=== PATIENT | female | born 1995 | race African-American/Black ===

== ENCOUNTER 2022-10-26 19:53 | Emergency (ER) | payer MEDICAID ==
[~2022-10-26] VITALS: Ht 157.5 cm; Wt 98.0 kg
[2022-10-26] MEDS ORDERED: IBUPROFEN 600MG TABLET PO ONE (21:15)
[2022-10-26 21:32] VITALS: BP 153/93
[2022-10-26] MEDS ORDERED: IBUP-2029 MT (23:45)
[2022-10-26] MEDS ORDERED: MUPI15CR11 TP (23:45)
[2022-10-26] MEDS ORDERED: CYCL10TA21 MT (23:45)
== END 2022-10-27 00:13 | disposition home or self-care (01) ==
LOC: ER 19:53
DX: S80.02XA Contusion of left knee, initial encounter (principal); S80.01XA Contusion of right knee, initial encounter; S60.512A Abrasion of left hand, initial encounter; S60.511A Abrasion of right hand, initial encounter; V43.52XA Car driver injured in collision with other type car in traffic accident, initial encounter; Y93.89 Activity, other specified; Y92.488 Other paved roadways as the place of occurrence of the external cause
CPT/HCPCS: 73130; 73560; 99284; Z7610